=== PATIENT | female | born 1975 | race American Indian/Alaskan Native ===

== ENCOUNTER 2021-05-25 09:36 | Emergency (ER) | payer OTHER ==
--- NOTE | 2021-05-25 11:24 | Emergency Department Report ---
ED Extremity Problem HPI - General Chief complaint: Extremity Injury, Lower Stated complaint: LEG PAIN Time Seen by Provider: 05/25/21 11:08 Source: patient Mode of arrival: Ambulatory Limitations: No Limitations - History of Present Illness Initial comments: 46-year-old -[place] obese female presents to the ER today with complaints of left leg pain. Patient states that she has been having pain in her left leg "for a long time". She states that the pain starts in her left hip and goes all the way down to her left lower leg. She states that she has a history of varicose veins and she has been seeing a vascular surgeon who have been giving her injections in her leg. She states that she also does have a repeat ultrasound of her leg in November 2020, but she missed that appointment. She states that she comes in today because she feels like there is something like "water rolling" in her left leg and she is unable to tolerate the pain. She reports associated swelling. She has been taking [id number] medication without much relief. She also denies any injury but she states that she does do a lot of standing and walking at her job. She reports increased pain to her left leg with standing and walking. She reports no erythema or bruising to the leg. She reports no associated low back pain, extremity numbness, tingling or weakness, chest pain or shortness of breath. She denies any history of peripheral artery disease or history of DVT or PE. She has no risk factors for DVT or PE. Patient also complains of this nonpainful patchy rash mainly to her abdomen and legs which she has had for the past 3 months. She has not seen anyone for this rash. She states that she does not have a primary care doctor. She denies any apparent new contacts such as medication soaps, lotions or any other apparent new contacts. MD Complaint: extremity pain, extremity swelling -: month(s) - Related Data Previous Rx's Medication Instructions Recorded Last Taken Type Acetaminophen/Codeine [Tylenol 1 tab PO Q6H PRN #10 tab 05/25/21 Unknown Rx /Codeine # 3 tab] Ketorolac [Toradol] 10 mg PO Q6H PRN #30 tab 05/25/21 Unknown Rx Allergies Allergy/AdvReac Type Severity Reaction Status Date / Time No Known Allergies Allergy Verified 05/25/21 09:46 ED Review of Systems ROS: Stated complaint: LEG PAIN Other details as noted in HPI Comment: All other systems reviewed and negative Constitutional: denies: chills, diaphoresis, fever, malaise, weakness Eyes: denies: eye discharge, vision change ENT: denies: ear pain, throat pain, dental pain, hearing loss, epistaxis, congestion Respiratory: denies: cough, shortness of breath, SOB with exertion, SOB at rest, wheezing Cardiovascular: denies: chest pain, palpitations, edema, syncope, paroxysmal nocturnal dyspnea Gastrointestinal: denies: abdominal pain, nausea, diarrhea Genitourinary: denies: urgency, dysuria, frequency, hematuria, discharge, abnormal menses, dyspareunia Musculoskeletal: joint swelling, arthralgia, myalgia. denies: back pain Skin: rash Neurological: denies: headache, weakness, numbness, paresthesias, confusion, abnormal gait, vertigo Psychiatric: denies: anxiety, depression, auditory hallucinations, visual hallucinations, homicidal thoughts, suicidal thoughts Hematological/Lymphatic: denies: easy bleeding, easy bruising, swollen glands ED Past Medical Hx - Past Medical History Additional medical history: VASULAR DISEASE/ PRE DIABETIC - Surgical History Additional Surgical History: LEFT LEG - Social History Smoking Status: Never Smoker Substance Use Type: Alcohol - Medications Home Medications: Home Medications Medication Instructions Recorded Confirmed Last Taken Type Acetaminophen/Codeine [Tylenol 1 tab PO Q6H PRN #10 tab 05/25/21 Unknown Rx /Codeine # 3 tab] Ketorolac [Toradol] 10 mg PO Q6H PRN #30 tab 05/25/21 Unknown Rx ED Physical Exam - General Limitations: No Limitations ED Course Vital Signs 05/25/21 09:50 Temperature 98.2 F Pulse Rate 80 Respiratory 20 Rate Blood Pressure 141/90 O2 Sat by Pulse 100 Oximetry ED Medical Decision Making - Medical Decision Making Patient has been having this left leg pain chronically. She sees a vascular surgeon for chronic varicose vein treatment. Current exam does not show any signs of a cellulitis, she has no apparent signs of swelling, and no signs of septic joint. She has no calf tenderness on exam. She has no risk factors for DVT or PE and therefore do not suspect a DVT at this time. Notify suspect that this could be related to CHF. both lower extremities are neurovascularly intact. He also reports no lower back pain and has no saddle anesthesia, bowel or bladder incontinence. As far as her rash, this has also been chronic for 3 months, exam shows that she has small hyperpigmented patchy dry areas scattered on her abdomen and upper legs but there is no signs of secondary infection, or any concerning findings with rash. Informed patient that at this time there is no indication for any emergent intervention. I will give her medication to help with pain but she will need to follow back up with her vascular surgeon, also given referral to orthopedic web operations specialist as this could also be coming from herniated discpatient having her lower back and she can get outpatient MRI. As far as the rash is concerned she will need to follow-up with dermatology for further assessment. Patient vital signs are stable. She was observed ambulating in the ER with a normal gait. She is not toxic or ill-appearing. She is neurologically intact. Patient expressed understanding. Patient was stable at time of discharge Critical care attestation.: If time is entered above; I have spent that time in minutes in the direct care of this critically ill patient, excluding procedure time. ED Disposition Clinical Impression: Chronic leg pain, Rash and nonspecific skin eruption Disposition: 01 HOME / SELF CARE / HOMELESS Is pt being admited?: No Does the pt Need Aspirin: No Condition: Stable Instructions: Chronic Pain, Adult, Rash, Adult, [id number] Additional Instructions: I recommend that you continue to follow-up with your vascular doctor and schedule the ultrasound that you were supposed to have done to you left lower leg. I also recommend follow-up with legal service specialist, as this pain could also be coming from a pinched nerve in your lower back and legal service specialist can do an outpatient MRI. If you do not have an legal service specialist 1 will be listed for you and you discharge instructions. Your rash is nonspecific at this time but I do recommend following up with salt manager for further evaluation and possible biopsy. In the meantime he can try using [id number] hydrocortisone cream once or twice a day. A salt manager will be listed for your discharge instructions. Take the pain medication as prescribed. Elevate your leg as often as possible. Return to the ER if worse. Prescriptions: Ketorolac [Toradol] 10 mg PO Q6H PRN #30 tab PRN Reason: Pain Acetaminophen/Codeine [Tylenol /Codeine # 3 tab] 1 tab PO Q6H PRN #10 tab PRN Reason: Pain Referrals: ALISHA HARPER MD [Staff Physician] - 3-5 Days (Primary care physician ) JESSIE POLLOCK MD [Staff Physician] - 3-5 Days (Window Assembler) The, Lumps and Bumps [Other] - 3-5 Days (Decontamination Worker) Forms: Work/School Release Form(ED) Time of Disposition: 11:27
[2021-05-25] MEDS ORDERED: KETOROLAC 60 MG/2 ML INJ IM ONE (11:27)
[2021-05-25] MEDS ORDERED: dexAMETHasone 20 MG/5 ML VIAL IM ONE (11:27)
[2021-05-25 12:01] VITALS: BP 152/97
== END 2021-05-25 12:01 | disposition home or self-care (01) ==
LOC: ED 09:36
DX: G89.29 Other chronic pain (principal); M79.605 Pain in left leg; R21 Rash and other nonspecific skin eruption; Z72.89 Other problems related to lifestyle; Z79.899 Other long term (current) drug therapy
CPT/HCPCS: 96372; 99282; J1100; J1885

== ENCOUNTER 2021-11-17 19:10 | Emergency (ER) | payer OTHER | END 2021-11-17 20:45 | disposition left against medical advice (07) | LOC: ED 19:10 | DX: T14.8XXA Other injury of unspecified body region, initial encounter (principal); Z53.21 Procedure and treatment not carried out due to patient leaving prior to being seen by health care provider; X58.XXXA Exposure to other specified factors, initial encounter; Y93.89 Activity, other specified; Y92.89 Other specified places as the place of occurrence of the external cause; Y99.8 Other external cause status ==